=== PATIENT | male | born 1995 ===

== ENCOUNTER → 2019-02-05 21:11 | Outpatient (REF) | payer OTHER, SELFPAY ==
[2019-02-05 23:27] LABS: HIV 1 and 2 Antibody NEGATIVE (NEGATIVE)
[2019-02-06 00:33] LABS: Urine N gonorrhoeae NOT DETECTED
[2019-02-06 00:47] LABS: Urine Chlamydia NOT DETECTED
[2019-02-08 12:22] LABS: RPR Screen Nonreactive (Nonreactive)
[2019-02-09 16:06] LABS: Hepatitis A Antibody IgM NONREACTIVE (NONREACTIVE); Hepatitis Acute Panel Interp 0.02; Hepatitis B Core Antibody IgM NONREACTIVE (NONREACTIVE); Hepatitis B Surface Antigen NONREACTIVE (NONREACTIVE); Hepatitis C Antibody NONREACTIVE
[2019-02-11 08:04] LABS: HSV 2 IGG AB 1.28 index (< 0.90); HSV1IGG 8.01 index (< 0.90)
[2019-02-11 10:25] LABS: Hepatitis B Surf AB Imm QUANT 10 mIU/mL (> 9)
== END ==
LOC: LAB 21:11
PROVIDERS: Visit Provider Family Medicine
DX: Z11.3 Encounter for screening for infections with a predominantly sexual mode of transmission (principal)
CPT/HCPCS: 36415; 80074; 86317; 86592; 86695; 86696; 86703; 87491; 87591